=== PATIENT | male | born 1975 | race Caucasian/White ===

== ENCOUNTER 2020-01-15 13:37 | Inpatient (IN) ==
[2020-01-15] MEDS ORDERED: SODIUM CHLORIDE 0.9% 1000ML 1,000 ML IV SCH (14:15)
[2020-01-15 14:32] LABS: Appearance Urine Cloudy (Clear); Bacteria Urine Automated Negative (Negative); Bilirubin Urine Negative (Negative); Blood Urine Negative (Negative); Cast Urine Automated 0 /lpf (0-5); Color Urine Yellow; Glucose Urine UA 3+ (Negative); Ketones Urine 2+ (Negative); Leukocyte Esterase Urine Negative (Negative); Nitrite Urine Negative (Negative); Protein Urine Negative (Negative); RBC Urine Automated 0-4 /hpf (0-4); Specific Gravity Urine > 1.045 (1.000-1.030); Urobilinogen Urine Negative (Negative)
--- NOTE | 2020-01-15 14:32 | Emergency Department Note ---
Impression & Plan Hyperglycemia, Type II diabetes mellitus ED Provider Note CHIEF COMPLAINT: Referred by provider HISTORY OF PRESENTING ILLNESS: This is a 44-year-old male who presents to the emergency department by private vehicle referred by his doctor with concern for dehydration and abnormalities with his diabetes. Patient states that he has a known diagnosis of type 2 diabetes and was previously treated with Metformin. He states that he ran out of his prescriptions about 8 months ago and was not ab le to get reestablished with his provider because of insurance issues and Covid. He has not been on Metformin for the past 8 months. Today he had an appointment with his provider to get restarted on his medications and he reports they did some blood work and urine test in the office and were concerned about ketones and sent him here for further evaluation. Patient denies any complaints, he has not had any nausea, vomiting, or diarrhea. He denies abdominal pain. He denies chest pain or shortness of breath. He denies fevers or chills. He does note that he has had a lot of increased thirst and increased urination the last few weeks. He also notes that he is being treated by a rugby league footballer for some diabetic wounds on his right foot, he states these are healing up well and are almost fully resolved. He denies any pain and rates his pain level 0/10. REVIEW OF SYSTEMS: A complete 10 point review of systems was reviewed with the patient with pertinent positives and negatives as per history of present illness. All else were negative. PAST MEDICAL HISTORY: Hypertension, hyperlipidemia, type 2 diabetes, depression SOCIAL HISTORY: Lives at home with family, denies tobacco use ALLERGIES: No known allergies PHYSICAL EXAM: CONSTITUTIONAL: Pleasant and cooperative. Nontoxic-appearing and in no acute distress. Mildly dehydrated, but otherwise well appearing and well nourished. HEENT: Normocephalic, atraumatic. PERRL, EOMI. Pharynx normal. Tacky mucous membranes. NECK: Supple, full active range of motion without discomfort. No cervical adenopathy. RESPIRATORY: Clear to auscultation bilaterally with no wheezing, crackles, rhonchi or stridor. Equal expansion bilaterally. CARDIOVASCULAR: Tachycardic. Regular rhythm with no murmurs, rubs or gallops. Normal peripheral perfusion, 2+ distal pulses in all 4 extremities. No pitting edema. GASTROINTESTINAL: Soft, nontender, nondistended. No palpable masses or HSM. Bowel sounds present in all quadrants. No CVA tenderness bilaterally. MUSCULOSKELETAL: Full range of motion of all joints without discomfort. Postop shoe on the right foot. INTEGUMENTARY: No rash or other significant dermatologic conditions noted. NEUROLOGIC: Alert and oriented X 4 with normal affect. Normal strength and sensation in all 4 extremities. Normal speech. Normal gait observed. ED COURSE AND MEDICAL DECISION MAKING: CC: Patient presenting with complaint of dehydration, diabetes DIFFERENTIAL DIAGNOSIS: Includes, but not limited to dehydration, electrolyte abnormality, hyperglycemia, DKA, acute kidney injury, among others. INTERPRETATION OF LABS: No leukocytosis, no significant anemia, normal platelets, mild hyponatremia, mild hypomagnesemia, marked hyperglycemia, gap is closed, normal bicarb level, normal renal function, normal liver enzymes. Normal TSH. UA positive for 3+ glucose and 2+ ketones. VBG with a normal pH. EKG: Shows sinus tachycardia with a rate of 105 bpm, normal intervals, no ST elevation or depression, no ectopy by my interpretation. No previous EKGs available for comparison. MEDICATION RECONCILIATION: I attest that I have personally reviewed the patient's current medication list. INITIAL VITAL SIGNS REVIEW: I reviewed the patient's initial vital signs and interpret them as follows: T: Afebrile; BP: Normotensive; HR: Tachycardic; RR: Within normal limits; Pulse Ox: Within normal limits on room air. MDM SUMMARY: Patient was evaluated at bedside, history and physical exam performed. Patient is alert and oriented, in no acute distress, resting calmly in stretcher. He is afebrile and nontoxic-appearing. He does appear mildly dehydrated and is noted to be tachycardic on arrival. He denies any complaints of pain. He denies chest pain or abdominal pain. He has not had any nausea/vomiting/diarrhea or urinary symptoms. Cardiac monitoring: An order was placed for continuous cardiac monitoring. The monitor shows a rate of 110 bpm with sinus tachycardia rhythm. EKG reviewed at bedside noting sinus tachycardia with no acute ischemic changes. Orders were placed at bedside for labs, UA, IV fluid bolus for hydration. Patient discussed with Dr. Small, who agrees with my assessment, plan, and disposition. Labs reviewed as above, notable for marked hyperglycemia and refractory hyponatremia, UA positive for glucose and ketones, but pH is normal and there is no evidence of DKA/acidosis. Patient was given a second IV fluid bolus and 10 units of IV regular insulin for his blood glucose level of 604 mg/dL. Given the significantly elevated blood glucose and patient's suspected poor control of his diabetes, I have felt the patient warranted hospital admission. I spoke on the phone with Dr. Virk, [facility] Hospitalist, who agrees to evaluate the patient for admission. A rapid Covid test was requested for admission, this was ordered and is negative. Patient reassessed multiple times throughout ED stay, he has remained hemodynamically stable and afebrile and without complaints. The patient was updated on all results and plan for admission, he verbalized understanding and was agreeable to this plan. All questions were answered to the best of my ability. The patient was stable at time of admission. The chart was completed utilizing [employer] Speech voice recognition software. Grammatical errors, random word insertions, pronoun errors, and incomplete sente nces are an occasional consequence of this system due to software limitations, ambient noise, and hardware issues. Any formal questions or concerns about the content, text, or information contained within the body of this dictation should be directly addressed to the nurse practitioner for clarification. Past Med/Surg History Social History Smoking Status: Never smoker Hx Alcohol Use: No Hx Substance Use: No Preferred Language: Serbian Communication Ability: Effective Beliefs That Will Affect Care: None Current Living Situation: Family Feels Safe at Home: Yes Safety Concerns: Feels Safe At This Time Assistive Devices: Crutches and Glasses Assistive Devices Comment: ORTHOTIC SHOE Allergies Allergies Allergy/AdvReac Type Severity Reaction Status Date / Time No Known Allergies Allergy Unknown Verified 01/15/20 17:35 Home Meds Home Medications Medication Instructions Recorded Confirmed bupropion HCl 100 mg PO BID 01/15/20 01/15/20 diphenhydramine HCl 150 mg PO HS PRN 01/15/20 01/15/20 ibuprofen 800 mg PO TID PRN 01/15/20 01/15/20 multivitamin 1 tab PO DAILY 01/15/20 01/15/20 Results & Data (ED) Vital Signs Vital Signs - 24 hr 01/15/20 13:50 01/15/20 15:58 01/15/20 17:41 Temperature 37.3 C Temperature Source Oral Pulse Rate 111 H Pulse Rate [Right Finger] 100 H 100 H Pulse Rhythm [Right Finger] Regular Regular Pulse Strength [Right Finger] Normal Respiratory Rate 19 20 20 Respiratory Effort / Characteristics Non-Labored Non-Labored Spontaneous Non-Labored Spontaneous Respiratory Depth Normal Normal Normal Blood Pressure 129/87 Blood Pressure [Right Arm] 135/85 120/80 Blood Pressure Mean 101 Blood Pressure Mean [Right Arm] 101 93 Pulse Oximetry 95 95 97 Oxygen Delivery Method Room Air Room Air Room Air Sepsis Recent Fever Within 48 Hours No Sepsis New/Unexplained Change in Mental Status No Sepsis Action Taken by Nursing No Action Required 01/15/20 18:39 01/15/20 19:04 Temperature Temperature Source Pulse Rate Pulse Rate [Right Finger] 98 H Pulse Rhythm [Right Finger] Pulse Strength [Right Finger] Respiratory Rate 20 Respiratory Effort / Characteristics Non-Labored Spontaneous Respiratory Depth Normal Blood Pressure Blood Pressure [Right Arm] 127/81 Blood Pressure Mean Blood Pressure Mean [Right Arm] 96 Pulse Oximetry 97 Oxygen Delivery Method Room Air Room Air Sepsis Recent Fever Within 48 Hours Sepsis New/Unexplained Change in Mental Status Sepsis Action Taken by Nursing Laboratory Data Result diagrams: 01/15/20 14:28 01/15/20 14:28 Lab Results 01/15/20 01/15/20 01/15/20 Range/Units 14:24 14:28 14:28 WBC 6.45 (4.8-10.8) K/uL RBC 4.63 L (4.7-6.1) M/uL Hgb 13.9 L (14.0-18.0) g/dL Hct 39.6 L (42-52) % MCV 85.3 (80-100) fL MCH 30.5 (25-34) pg MCHC 35.8 (32-36) g/dL Plt Count 244 (130-400) K/uL Immature Gran % (Auto) 0.2 % Neut % (Auto) 59.4 % Lymph % (Auto) 28.8 % [place] % (Auto) 9.1 % Eos % (Auto) 2.2 % Baso % (Auto) 0.3 % Neut # (Auto) 3.83 (1.4-6.5) K/uL Lymph # (Auto) 1.86 (1.2-3.4) K/uL [place] # (Auto) 0.59 (0.11-0.59) K/uL Eos # (Auto) 0.14 (0-0.5) K/uL Baso # (Auto) 0.02 (0-0.2) K/uL Immature Gran # (Auto) 0.01 (0.00-0.02) K/uL VBG pH (7.36-7.41) VBG pCO2 (38-50) mmHg VBG pO2 mmHg VBG HCO3 mmol/L VBG O2 Saturation % VBG Base Excess mEq/L Barometric Pressure mm/Hg Sodium 132 L (136-145) mmol/L Potassium 4.3 (3.5-5.1) mmol/L Chloride 99 (98-107) mmol/L Carbon Dioxide 24 (21-32) mmol/L Anion Gap 9 (3-11) BUN 12 (7-18) mg/dl Creatinine 0.93 (0.6-1.4) mg/dl Est Cr Clr Drug Dosing 135.6 ml/min Est GFR ( Amer) 113.7 Est GFR (Non-Af Amer) 98.1 BUN/Creatinine Ratio 12.7 (10-20) Glucose 604 H* (70-99) mg/dl POC Glucose (70-99) mg/dl Calcium 8.6 (8.5-10.1) mg/dl Magnesium 1.7 L (1.8-2.4) mg/dl Total Bilirubin 0.4 (0.2-1) mg/dl AST 9 L (15-37) U/L ALT 23 (12-78) U/L Alkaline Phosphatase 79 (45-117) U/L Total Protein 6.9 (6.4-8.2) gm/dl Albumin 3.8 (3.4-5.0) gm/dl Globulin 3.1 (2.5-4.0) gm/dl Albumin/Globulin Ratio 1.2 (0.9-2) Beta-Hydroxybutyric Acd (0.2-2.81) mg/dl TSH 0.611 (0.300-4.500) uIu/ml Specimen Hemolysis Urine Color Yellow Urine Appearance Cloudy A (Clear) Urine pH 5.0 (4.5-7.5) Ur Specific [place] > 1.045 H (1.000-1.030) Urine Protein Negative (Negative) Urine Glucose (UA) 3+ H (Negative) Urine Ketones 2+ H (Negative) Urine Blood Negative (Negative) Urine Nitrite Negative (Negative) Urine Bilirubin Negative (Negative) Urine Urobilinogen Negative (Negative) Ur Leukocyte Esterase Negative (Negative) Urine WBC (Auto) 1-5 (0-5) /hpf Urine RBC (Auto) 0-4 (0-4) /hpf U Hyaline Cast (Auto) 0 (0-5) /lpf U Epithel Cells (Auto) 5-10 H (0-5) /lpf Urine Bacteria (Auto) Negative (Negative) SARS-CoV-2 Ag (Rapid) (Negative) 01/15/20 01/15/20 01/15/20 Range/Units 14:34 18:30 Unknown WBC (4.8-10.8) K/uL RBC (4.7-6.1) M/uL Hgb (14.0-18.0) g/dL Hct (42-52) % MCV (80-100) fL MCH (25-34) pg MCHC (32-36) g/dL Plt Count (130-400) K/uL Immature Gran % (Auto) % Neut % (Auto) % Lymph % (Auto) % [place] % (Auto) % Eos % (Auto) % Baso % (Auto) % Neut # (Auto) (1.4-6.5) K/uL Lymph # (Auto) (1.2-3.4) K/uL [place] # (Auto) (0.11-0.59) K/uL Eos # (Auto) (0-0.5) K/uL Baso # (Auto) (0-0.2) K/uL Immature Gran # (Auto) (0.00-0.02) K/uL VBG pH 7.37 (7.36-7.41) VBG pCO2 44 (38-50) mmHg VBG pO2 45 mmHg VBG HCO3 25 mmol/L VBG O2 Saturation 79.1 % VBG Base Excess -1.1 mEq/L Barometric Pressure 738.8 mm/Hg Sodium (136-145) mmol/L Potassium (3.5-5.1) mmol/L Chloride (98-107) mmol/L Carbon Dioxide (21-32) mmol/L Anion Gap (3-11) BUN (7-18) mg/dl Creatinine (0.6-1.4) mg/dl Est Cr Clr Drug Dosing ml/min Est GFR ( Amer) Est GFR (Non-Af Amer) BUN/Creatinine Ratio (10-20) Glucose (70-99) mg/dl POC Glucose 282 H (70-99) mg/dl Calcium (8.5-10.1) mg/dl Magnesium (1.8-2.4) mg/dl Total Bilirubin (0.2-1) mg/dl AST (15-37) U/L ALT (12-78) U/L Alkaline Phosphatase (45-117) U/L Total Protein (6.4-8.2) gm/dl Albumin (3.4-5.0) gm/dl Globulin (2.5-4.0) gm/dl Albumin/Globulin Ratio (0.9-2) Beta-Hydroxybutyric Acd (0.2-2.81) mg/dl TSH (0.300-4.500) uIu/ml Specimen Hemolysis Urine Color Urine Appearance (Clear) Urine pH (4.5-7.5) Ur Specific [place] (1.000-1.030) Urine Protein (Negative) Urine Glucose (UA) (Negative) Urine Ketones (Negative) Urine Blood (Negative) Urine Nitrite (Negative) Urine Bilirubin (Negative) Urine Urobilinogen (Negative) Ur Leukocyte Esterase (Negative) Urine WBC (Auto) (0-5) /hpf Urine RBC (Auto) (0-4) /hpf U Hyaline Cast (Auto) (0-5) /lpf U Epithel Cells (Auto) (0-5) /lpf Urine Bacteria (Auto) (Negative) SARS-CoV-2 Ag (Rapid) Negative (Negative) Administered Medications Discontinued Medications Sodium Chloride (Nss 1000ml) 1,000 mls @ 999 mls/hr IV .Q1H1M LANDON Stop: 01/15/20 15:15 Last Infusion: 01/15/20 17:42 Dose: 0 mls/hr Documented by: [id number] Admin: 01/15/20 14:27 Dose: 999 mls/hr Documented by: [id number] Sodium Chloride (Nss 1000ml) 1,000 mls @ 999 mls/hr IV .Q1H1M ONE Stop: 01/15/20 18:11 Last Admin: 01/15/20 17:36 Dose: 999 mls/hr Documented by: [id number] Insulin Human Regular (Novolin-R Insulin Per Unit Charge) 10 units IV NOW STA Stop: 01/15/20 17:12 Last Admin: 01/15/20 17:35 Dose: 10 units Documented by: [id number] Cosigned by: [id number] Discharge Plan Visit Data Chief Complaint: Dehydration Stated Complaint: DEHYDRATED ED Provider: Nelson Small ED Midlevel Provider: Sahra Rossi Discharge Problem: Hyperglycemia, Type II diabetes mellitus Patient Disposition: Admitted As Inpatient Condition: Good Forms Stand Alone Forms: [facility] Testt Prescriptions Prescriptions: No Action multivitamin Tablet 1 tab PO DAILY RF: 0 diphenhydramine HCl 50 mg Tablet 150 mg PO HS PRN (Reason: Sleep) RF: 0 bupropion HCl 100 mg Tablet 100 mg PO BID RF: 0 ibuprofen 200 mg Tablet 800 mg PO TID PRN (Reason: Pain) RF: 0 Referrals Referrals: [facility],Medicine [Primary Care Provider] - Discharge Problem: Type II diabetes mellitus Qualifiers: Diabetes mellitus prison insulin use: without terminal manager use Diabetes mellitus complication status: with hyperglycemia Qualified Code(s): E11.65 - Type 2 diabetes mellitus with hyperglycemia
[2020-01-15 14:44] LABS: Base Excess VBG -1.1 mEq/L; Oxygen Saturation VBG 79.1 %; pH VBG 7.37 (7.36-7.41)
[2020-01-15 15:41] LABS: Albumin Globulin Ratio 1.2 (0.9-2); Albumin Level 3.8 gm/dl (3.4-5.0); BUN Creatinine Ratio 12.7 (10-20); Bilirubin,Total 0.4 mg/dl (0.2-1); Calcium 8.6 mg/dl (8.5-10.1); Creatinine Clr Calc Pharmacy 135.6 ml/min; Est GFR (African American) 113.7; Est GFR (Non-African American) 98.1; Globulin 3.1 gm/dl (2.5-4.0); Magnesium 1.7 mg/dl (1.8-2.4); Potassium 4.3 mmol/L (3.5-5.1); Thyroid Stimulating Hormone 0.611 uIu/ml (0.300-4.500); Total Protein 6.9 gm/dl (6.4-8.2)
[2020-01-15 15:42] LABS: Hematocrit (blood only) 39.6 % (42-52); Hemoglobin 13.9 g/dL (14.0-18.0); Mean Corpuscular Hemoglobin 30.5 pg (25-34); Mean Corpuscular Hgb Conc 35.8 g/dL (32-36); Mean Corpuscular Volume 85.3 fL (80-100); Platelet Count 244 K/uL (130-400); Red Blood Count 4.63 M/uL (4.7-6.1); White Blood Count 6.45 K/uL (4.8-10.8)
[2020-01-15 15:46] LABS: Basophils # (auto) 0.02 K/uL (0-0.2); Basophils % (auto) 0.3 %; Eosinophils # (auto) 0.14 K/uL (0-0.5); Eosinophils % (auto) 2.2 %; Immature Granulocytes # (auto) 0.01 K/uL (0.00-0.02); Immature Granulocytes % (auto) 0.2 %; Lymphocytes # (auto) 1.86 K/uL (1.2-3.4); Lymphocytes % (auto) 28.8 %; Monocytes # (auto) 0.59 K/uL (0.11-0.59); Monocytes % (auto) 9.1 %; Neutrophils # (auto) 3.83 K/uL (1.4-6.5); Neutrophils % (auto) 59.4 %
[2020-01-15] MEDS ORDERED: SODIUM CHLORIDE 0.9% 1000ML 1,000 ML IV ONE (17:11)
[2020-01-15] MEDS ORDERED: NovoLIN-R INSULIN PER UNIT CHARGE IV STA (17:11)
[2020-01-15] MEDS ORDERED: PHARMACY GLYCEMIC MGMT CONSULT STA (17:35)
[2020-01-15] MEDS ORDERED: CARBOHYDRATES FOR HYPOGLYCEMIA PO PRN (19:22)
[2020-01-15] MEDS ORDERED: GLUCAGON FOR INJ 1 MG VIAL SQ PRN (19:22)
[2020-01-15] MEDS ORDERED: GLUCOSE 10 TABS/TUBE PO PRN (19:22)
[2020-01-15] MEDS ORDERED: ACETAMINOPHEN 325 MG TAB PO PRN (19:22)
[2020-01-15] MEDS ORDERED: GLUCOSE 40% GEL 15 GM TUBE PO PRN (19:22)
[2020-01-15] MEDS ORDERED: DEXTROSE 50% 50 ML SYRINGE IV PRN (19:22)
[2020-01-15] MEDS ORDERED: ONDANSETRON INJ 2 MG/ML 2 ML VIAL IV PRN (19:22)
[2020-01-15] MEDS ORDERED: PHARMACY GLYCEMIC MGMT CONSULT PRN (19:42)
[2020-01-15] MEDS: NORMOSOL-R 1,000 ML IV SCH (19:48)
--- NOTE | 2020-01-15 20:01 | Pharmacy Report ---
Glycemic Control Consultation - Date of Service January 15, 2020 - Scope Scope: Glycemic Pharmacist consulted for glycemic control and to write orders per [facility] inpatient glycemic control protocol. - Objective Weight: 118.2 kg Accuchecks BSG (last 24hrs): 01/15/20 01/15/20 14:28 18:30 Glucose 604 H* POC Glucose 282 H Laboratory Data (last 24hrs): 01/15/20 14:28 Potassium 4.3 Carbon Dioxide 24 Anion Gap 9 Creatinine 0.93 Est Cr Clr Drug Dosing 135.6 Beta-Hydroxybutyric Acd - Recent Pertinent Medications Outpatient Anti-diabetic Regimen: * None * A1c = pending Risk Factors for Insulin Resistance: * Diet: * T2DM - Assessment & Plan Assessment & Plan: ASSESSMENT: * 44 yo M admitted secondary to hyperglycemia. Pharmacy is consulted for inpatient glycemic management. * Patient reports a h/o T2DM but hasn't taken Metformin in over 8 months. * BSG upon admission was > 600 mg/dL. Patient received 10 units IV regular insulin and BSG trended down to 282 mg/dL. No signs/symptoms of HHS/DKA. * Will start Metformin at 500 mg PO BIDM as if a new start. Titrate up by 500 mg/week to goal dose of 1000 mg PO BIDM. * Will start Novolog based on adjusted body weight/stress of 1-2 given he is insulin naive. Overnight check added since patient will be getting a late dinner tray. PLAN FOR INPATIENT GLYCEMIC CONTROL: * Metformin 500 mg PO BIDM * Bolus insulin * NovoLog per scale ACHS or Q6hrs while NPO * Goal Range: Low 120 mg/dL - High 150 mg/dL * Correction Factor: 30 mg/dL/unit * Nutritional / Prandial insulin per carb ratio of 1 unit per 10 grams CHO consumed * Please note that the plan above was derived based on current level of insulin resistance and hospital stress. These recommendations are appropriate for inpatient admission only. Plan of care upon discharge will need to be reassessed to avoid potential outpatient hypo/hyperglycemia. Thank you.
[2020-01-15] MEDS: metFORMIN HCL 500 MG TAB PO SCH (20:14)
[2020-01-15] MEDS: INSULIN ASPART 100 UNITS/ML 3 ML PEN SC SCH (20:14)
[2020-01-15] MEDS ORDERED: diphenhydrAMINE Capsule 25 MG CAP PO PRN (20:15)
--- NOTE | 2020-01-15 20:28 | History & Physical Report ---
Date of Service January 15, 2020 Assessment & Plan (1) Hyperglycemia: Blood sugar was 604 on presentation, though no signs/symptoms of HHS/DKA. - Received 10 units IV insulin in the ED. - Glycemic pharmacy consulted * Start metformin * Sliding scale insulin - DM meal - Will consider adding a second oral agent. Patient's compliance is tough to ascertain, so holding off on insulin on discharge may help. (2) Type II diabetes mellitus: A1c pending and no others in the chart. - As above (3) Hypertension: Has been on olmesartan in the past. Presently not on anything. - Monitor BP (4) Depression: Euthymic on exam. No concern for SI/HI. - Continue bupropion (5) Right foot infection: Had blisters on his foot from hot sand in May due to diabetic neuropathy. Has been following account classification clerk weekly. Presently appear well-healed and uninfected. - Monitor (6) DVT prophylaxis: SCDs & early ambulation - Low DVT risk per admission calculator Admission and Anticipated Discharge Date Admission Date: January 15, 2020 History of Present Illness Primary Care Provider: [facility] In Medicine 44yo M w/ hx of DM, HTN, depression who presents for hyperglycemia. He has been a diabetic for about 10 years and has been on and off metformin for that entire time. He reports that he will usually be on it for a year or so, then stop for some time. Usually, he stops due to either insurance issues and not seeing a physician or due to the side effects of loose BMs. 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 However, because he has to take restroom breaks frequently on the metformin, he stopped taking it because he had no where to use the restroom. Since April, he hasn't been taking it. He also has not been taking any other medications. He recently went to his PCP and got routine labs. When his blood sugar came back high, he was asked to come to the ER for fluids and a short admission. He reports polyuria and polydipsia, but denies they are better/worse than they have been for "years" for him. Otherwise, he denies any lightheadedness, dizziness, chest pain, shortness of breath, fevers, chills, or other symptoms. Allergies Allergy/AdvReac Type Severity Reaction Status Date / Time No Known Allergies Allergy Unknown Verified 01/15/20 17:35 Home Medications Medication Instructions Recorded Confirmed Type bupropion HCl 100 mg PO BID 01/15/20 01/15/20 History diphenhydramine HCl 150 mg PO HS PRN 01/15/20 01/15/20 History ibuprofen 800 mg PO TID PRN 01/15/20 01/15/20 History multivitamin 1 tab PO DAILY 01/15/20 01/15/20 History Past Med/Surg History Medical History (Updated 01/15/20 @ 20:28 by Quinton Virk MD) Depression Hypertension Type II diabetes mellitus Surgical History (Updated 01/15/20 @ 20:20 by Quinton Virk MD) History of orthopedic surgery Family History (Updated 01/15/20 @ 20:21 by Quinton Virk MD) Mother Diabetes Uncle Diabetes Social History Smoking Status: Never smoker Hx Alcohol Use: No Hx Substance Use: No Preferred Language: Luxembourgish Communication Ability: Effective Beliefs That Will Affect Care: None Current Living Situation: Family Feels Safe at Home: Yes Safety Concerns: Feels Safe At This Time Assistive Devices: Crutches and Glasses Assistive Devices Comment: ORTHOTIC SHOE Review of Systems Review of Systems: All systems reviewed & are unremarkable except as noted in HPI & below Physical Exam Constitutional: WD/WN, vitals as above Eyes: EOM intact bilaterally; no conjunctival abnormality ENMT: external ear and nose normal, oropharynx normal Neck: trachea midline, no thyromegaly normal visual inspection Respiratory: normal respiratory effort, lungs clear to auscultation no respiratory distress Cardiovascular: RRR, no murmur, no edema Gastrointestinal (Abdomen): Inspection/Auscultation: abdomen normal to inspection; abdomen not distended Musculoskeletal: no cyanosis or clubbing, extremities motor strength 5/5 Skin: no rashes, warm and dry + lesion (Healing blisters on right foot) Neurologic: moves all extremities and awake Psychiatric: Orientation: alert, oriented to person and cooperative Results & Data Results & Data ([facility]) Vital Signs (Past 12 Hours) Vital Signs Temp Pulse Pulse Resp BP BP Pulse Ox 01/15/20 18:39 98 H 20 127/81 97 01/15/20 17:41 100 H 20 120/80 97 01/15/20 15:58 100 H 20 135/85 95 01/15/20 13:50 37.3 C 111 H 19 129/87 95 Code Status & VTE Plan VTE Prophylaxis Plan VTE Prophylaxis will be ordered: Yes PG Care Time/CCT Total # of Minutes Spent Total Time Spent with Patient: Total time spent is greater than 50% in coordination of care (as documented) at patient's floor/unit and/or counseling patient: Coding Level of Care Code 81908 Initial Inpt Care Lvl 3 Diagnoses Hyperglycemia R73.9 Type II diabetes mellitus E11.65 Diabetes mellitus complication status: with hyperglycemia Diabetes mellitus laborer marine terminal insulin use: without alf use Hypertension I10 Depression F32.9 Right foot infection L08.9 DVT prophylaxis Z29.9 (1) Type II diabetes mellitus Diabetes mellitus complication status: with hyperglycemia Diabetes mellitus alf insulin use: without alf use Qualified Code(s): E11.65 - Type 2 diabetes mellitus with hyperglycemia
[2020-01-15] MEDS: buPROPion HCl 100 MG TABLET PO SCH (20:55)
--- NOTE | 2020-01-15 22:42 | Electrocardiogram Report ---
Test Reason : Blood Pressure : / mmHG Vent. Rate : 105 BPM Atrial Rate : 105 BPM P-R Int : 128 ms QRS Dur : 086 ms QT Int : 364 ms P-R-T Axes : 039 038 042 degrees QTc Int : 481 ms Sinus tachycardia Prolonged QT No previous ECGs available Confirmed by Parker Ivan ([id number]) on 01/15/2020 10:42:05 PM Referred By: Chen Arriaza Confirmed By:Parker Ivan
[2020-01-16] MEDS ORDERED: INSULIN ASPART 100 UNITS/ML 3 ML PEN SC SCH (02:00)
[2020-01-16] MEDS: NORMOSOL-R 1,000 ML IV SCH ×3 (02:28→14:45)
[2020-01-16 07:29] LABS: Estimated Average Glucose 329 mg/dl; Hemoglobin A1C 13.1 % (4.5-5.6)
[2020-01-16 07:48] LABS: Hematocrit (blood only) 35.9 % (42-52); Hemoglobin 13.3 g/dL (14.0-18.0); Mean Corpuscular Hemoglobin 31.7 pg (25-34); Mean Corpuscular Volume 85.5 fL (80-100); Mean Platelet Volume 9.8 fL (7.4-10.4); Platelet Count 197 K/uL (130-400); RDW Coefficient of Variation 13.1 % (11.5-14.5); RDW Standard Deviation 39.6 fL (36.4-46.3); White Blood Count 6.59 K/uL (4.8-10.8)
[2020-01-16] MEDS: buPROPion HCl 100 MG TABLET PO SCH (07:55)
[2020-01-16] MEDS: metFORMIN HCL 500 MG TAB PO SCH (07:55)
[2020-01-16] MEDS: INSULIN ASPART 100 UNITS/ML 3 ML PEN SC SCH ×2 (07:56→12:00)
[2020-01-16] MEDS ORDERED: INSULIN GLARGINE SOLOSTAR 100 UNITS/ML 3 ML PEN SC SCH ×2 (09:00→21:00)
[2020-01-16 09:36] LABS: BUN Creatinine Ratio 11.5 (10-20); Calcium 8.8 mg/dl (8.5-10.1); Creatinine Clr Calc Pharmacy 186.5 ml/min; Est GFR (African American) 132.7; Est GFR (Non-African American) 114.5; Potassium 3.5 mmol/L (3.5-5.1)
--- NOTE | 2020-01-16 09:47 | Pharmacy Report ---
Pharmacy Glycemic Short Note 2 - Date of Service January 16, 2020 - Glycemic Short BSG Results (Last 24 hours): 01/15/20 01/15/20 01/15/20 14:28 18:30 20:09 Glucose 604 H* POC Glucose 282 H 278 H 01/16/20 01/16/20 01/16/20 01:59 07:22 07:35 Glucose Cancelled POC Glucose 240 H 268 H OUTPATIENT ANTIDIABETIC REGIMEN: * None * HbA1c: 13.1% (01/15/20) ASSESSMENT: * TS received 22 units of insulin last evening + initiated on metformin 500 mg PO BIDM * 10 units in the form of IV regular insulin bolus + 12 units of SC prandial/correctional * No basal insulin given * Fasting BSG of 268 mg/dL this morning * Will initiate SC basal insulin with Lantus + tighten Novolog parameters to weight-based stress of 2 dosing * IV fluids: Normosol-R at 150 mL/hr PLAN FOR INPATIENT GLYCEMIC CONTROL: * Will change metformin IR to ER formulation and dose with evening meal * i.e. metformin ER 500 mg PO daily w/ dinner * Basal insulin * Lantus 20 units SQ qAM * Lantus scale HS (20-30 units - see EHR for details) * Bolus insulin - lower goal range, tighten carb ratio and correction factor * NovoLog per scale ACHS or Q6hrs while NPO * Goal Range: Low 110 mg/dL - High 140 mg/dL * Correction Factor: 15 mg/dL/unit * Nutritional / Prandial insulin per carb ratio of 1 unit per 6 grams CHO consumed PLAN FOR DISCHARGE: * HbA1c of 13.1% demonstrates very poor outpatient glycemic control * Per H&P - patient has been diabetic for ~10 years and has been on and off metformin during that time * Unfortunately, patient is unable to afford insulin at this time. Will stick to medications on $[address] [facility] (see below). In process of applying for medical assistance - in which case PCP may be able to initiate once daily basal insulin. * For now, would suggest: * Metformin XR 500mg PO daily with evening meal. Typically the XR formulation of metformin is better tolerated than the immediate release formulation. Continue to titrate metformin dosing upwards as recommended. Dosage increases should be made in increments of 500 mg weekly, up to 2,000 mg/day PO, given in divided doses. Doses above 2000 mg/day may be better tolerated if divided and given 3 times per day with meals. Max: 2,550 mg/day PO, in divided doses * --B12 supplementation may be necessary with detention metformin * Glipizide ER 5 mg PO daily with breakfast
[2020-01-16 09:58] LABS: Beta-Hydroxybutyrate 9.05 mg/dl (0.2-2.81)
--- NOTE | 2020-01-16 15:25 | Discharge Summary ---
Date of Service January 16, 2020 Admission HPI Per Admitting Provider 44yo M w/ hx of DM, HTN, depression who presents for hyperglycemia. He has been a diabetic for about 10 years and has been on and off metformin for that entire time. He reports that he will usually be on it for a year or so, then stop for some time. Usually, he stops due to either insurance issues and not seeing a physician or due to the side effects of loose BMs. 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 However, because he has to take restroom breaks frequently on the metformin, he stopped taking it because he had no where to use the restroom. Since April, he hasn't been taking it. He also has not been taking any other medications. He recently went to his PCP and got routine labs. When his blood sugar came back high, he was asked to come to the ER for fluids and a short admission. He reports polyuria and polydipsia, but denies they are better/worse than they have been for "years" for him. Otherwise, he denies any lightheadedness, dizziness, chest pain, shortness of breath, fevers, chills, or other symptoms. Principal Diagnosis Hyperglycemia Discharge Exam Constitutional WD/WN, vitals as above Eyes EOM intact bilaterally; no conjunctival abnormality ENMT external ear and nose normal, oropharynx normal Neck trachea midline, no thyromegaly normal visual inspection Respiratory normal respiratory effort, lungs clear to auscultation no respiratory distress Cardiovascular RRR, no murmur, no edema Gastrointestinal (Abdomen) Inspection/Auscultation: abdomen normal to inspection; abdomen not distended Musculoskeletal no cyanosis or clubbing, extremities motor strength 5/5 Skin no rashes, warm and dry + lesion (Healing blisters on right foot) Neurologic moves all extremities and awake Psychiatric Orientation: alert, oriented to person and cooperative Discharge Data Allergies Allergy/AdvReac Type Severity Reaction Status Date / Time No Known Allergies Allergy Unknown Verified 01/15/20 17:35 Consultations 01/15/20 17:12 ED Decision to Admit Stat Diabetes Follow up Diabetes Follow-up Needed for HgbA1c >9% Hospital Course (1) Hyperglycemia: Blood sugar was 604 on presentation, though no signs/symptoms of HHS/DKA. - Received 10 units IV insulin in the ED. - Glycemic pharmacy consulted * Started metformin - On discharge, added glipizide ER. The patient unfortunately can't afford even the [facility] generic insulin, so that is off the table right now. Hopefully he can work with [employer] to get coverage somehow. He is also working on getting [place], which could help cover insulin. (2) Type II diabetes mellitus: A1c was 13.1%. - As above (3) Hypertension: Has been on olmesartan in the past. Presently not on anything. BP ran a bit high, but will defer to PCP to start anything new. - Monitor BP (4) Depression: Euthymic on exam. No concern for SI/HI. - Continue bupropion (5) Right foot infection: Had blisters on his foot from hot sand in May due to diabetic neuropathy. Has been following landscaping manager weekly. Presently appear well-healed and uninfected. - Monitor (6) DVT prophylaxis: SCDs & early ambulation - Low DVT risk per admission calculator Total Time Total Time Spent Total Time Spent (In Minutes): 35 Total Time Includes: Examination of the Patient, Discharge Planning and Communication With Other Providers Discharge Plan Discharge Items Patient Disposition: Home - Self-Care Reason For Visit: HYPERGLYCEMIA Discharge Diagnosis: High blood sugars Condition on Discharge: Good Activity: Resume your previous activity Non-emergency contact: Primary Care Provider Call non-emergency contact if: your symptoms worsen Follow-up/Referrals: [facility],Medicine [Primary Care Provider] - Diet: Carb Consistent or DM2 Addtl Attending Provider Instructions: Please follow up with your PCP for a blood sugar check as well as a check of your blood pressure. For your headaches, you can take a magnesium oxide supplement of 400 mg per day. You can also try a B vitamin, again over the counter. Try to use Tylenol or ibuprofen only 10-12 times per month to avoid a rebound headache. Pending Studies at Discharge: No Stand-Alone Forms: My [employer], Smoking Cessation Medications and DC Order Prescriptions: New metformin 500 mg tablet extended release 24hr 500 mg PO PM Qty: 30 RF: 0 glipizide 5 mg tablet extended release 24hr 5 mg PO DAILY Qty: 30 RF: 0 Continued multivitamin Tablet 1 tab PO DAILY RF: 0 diphenhydramine HCl 50 mg Tablet 150 mg PO HS PRN (Reason: Sleep) RF: 0 bupropion HCl 100 mg Tablet 100 mg PO BID RF: 0 ibuprofen 200 mg Tablet 800 mg PO TID PRN (Reason: Pain) RF: 0 Discharge Orders: Discharge Order (Routine); Ordered 01/16/20 Ordered By: Quinton Leblanc/Other Patient Handouts: High Blood Sugar (Hyperglycemia), Managing Type 2 Diabetes, Diabetes: Meal Planning Admission Data Admit Date/Time: 01/15/20 17:35 Attending Provider: Quinton Virk Admit Provider: Quinton Virk [facility] Other Providers: Quinton Virk Coding Level of Care Code D/C Day Management >30 mins Diagnoses Hyperglycemia R73.9 Type II diabetes mellitus E11.65 Diabetes mellitus complication status: with hyperglycemia Diabetes mellitus usp insulin use: without termite control servicer use Hypertension I10 Depression F32.9 Right foot infection L08.9 DVT prophylaxis Z29.9
[2020-01-16] MEDS ORDERED: metFORMIN HCL ER 500 MG TABCR PO SCH (17:00)
== END 2020-01-16 16:19 | disposition home or self-care (01) | DRG 639 ==
LOC: ED 13:37 → 2N 17:35